=== PATIENT | male | born 1935 | race Caucasian/White ===

== ENCOUNTER 2016-11-22 12:50 | Inpatient (IN) | payer MEDICARE, OTHER ==
[2016-11-15 16:23] LABS: HEMATOCRIT 45.4 % (40.0-51.0); HEMOGLOBIN 14.3 g/dL (13.6-17.8)
[2016-11-15 16:38] LABS: BUN (BLOOD UREA NITROGEN) 23 MG/DL (6-23); CALCIUM, SERUM 8.3 MG/DL (8.5-10.4); CHLORIDE, SERUM 109 MMOL/L (96-112); CO2 (CARBON DIOXIDE) 31 MMOL/L (24-34); CREATININE 0.94 MG/DL (0.70-1.30); GFR AFRICAN AMERICAN 88 ML/MIN (>=60); GFR NON AFRICAN AMERICAN 76 ML/MIN (>=60); GLUCOSE, SERUM 91 MG/DL (60-99); POTASSIUM, SERUM 4.2 MMOL/L (3.5-5.3); SODIUM, SERUM 145 MMOL/L (135-148)
[2016-11-15 18:25] LABS: BASOPHILS 0.7 %; BASOPHILS ABSOLUTE 0.04 10/3/uL (0.0-0.16); EOSINOPHILS 1.3 %; EOSINOPHILS ABSOLUTE 0.07 10/3/uL (0.0-0.53); IMMATURE GRANULOCYTES 0.2 %; IMMATURE GRANULOCYTES ABSOLUTE 0.01 10/3/uL (0.0-0.11); LYMPHOCYTES 24.2 %; LYMPHOCYTES ABSOLUTE 1.32 10/3/uL (0.67-4.30); MEAN CORPUS HGB CONC 31.7 g/dL (32.0-36.0); MEAN CORPUSCULAR HEMOGLOB 29.1 pg (26.0-34.0); MEAN PLATELET VOLUME 11.1 fL (9.2-13.0); MONOCYTES 9.7 %; MONOCYTES ABSOLUTE 0.53 10/3/uL (0.21-1.20); NEUTROPHILS 63.9 %; NEUTROPHILS ABSOLUTE 3.48 10/3/uL (2.02-8.40); PLATELET COUNT 163 10/3/uL (150-400); RBC DISTRIBUTION WIDTH 14.3 % (12.0-16.0); WHITE BLOOD CELLS 5.5 10/3/uL (4.5-10.5)
[2016-11-15 18:30] LABS: MANUAL DIFF NO %; MEAN CORPUSCULAR VOLUME 91.9 fL (80-100); RED CELL COUNT 4.84 10/6/uL (4.7-6.1)
--- NOTE | ~2016-11-22 | DS ---
Discharge Summary [facility] [address] [place]. [address] NAME: ANALI ADORNO : 35 STATUS : DIS IN PAT#: [id number] AGE: 81 ADM/REG DATE : 11/22/16 MR#: [id number] REPORT SERV DATE: 11/26/16 DICTATED BY: CANELO HARVEY III DATE: 11/25/16 REPORT STATUS : Draft TRANSCRIBED BY: MODTheo DATE: 11/25/16 ADMISSION DATE: 11/22/2016 DISCHARGE DATE: 11/25/2016 DATE OF ANTICIPATED DISCHARGE: 11/25/2016. DISCHARGE DIAGNOSIS: Bladder cancer. PROCEDURE: Cystoscopy, TURBT. HISTORY OF PRESENT ILLNESS: The patient is 81-year-old, white male, presented with gross hematuria. CT showed thickening of the right lateral wall, also a very large prostate. He was cystoscoped in the office and had a sizable prostate as well as significant involvement of the right lateral wall of the bladder with what appeared to be a sessile tumor with flexible scope. He was admitted for a cysto TURBT. PAST MEDICAL HISTORY: Includes COPD, hypertension. He has also had a mitral valve repair. He has a long history of smoking with COPD. HOSPITAL COURSE: The patient was taken to the operating room. The prostate did make it somewhat difficult to resect, however, the majority of the right lateral wall was involved with tumor extending medially toward the posterior base of the bladder. It was more papillary than solid. Shavings were done down deeply in the muscle and several areas. All visible tumors were resected and were fulgurated. Path report was high-grade T1 with muscle present but not involved. He had significant hematuria that I felt was mostly from the prostate. At the end of the procedure, there was no bleeding from the bladder, however, the prostate was bleeding from the manipulation and traction was required to clear the urine. His urine had gotten to light pink on a slow drip and when seen on 11/25/2016, he was urinating pink urine but urinating urgently with some minor urge incontinence. We will observe him today. If his urine remains clear to light pink and he is voiding satisfactorily, we will discharge him home. I explained to him he does have superficial invasive disease and will need a second look in approximately 4-5 weeks to rule out muscle disease. If this is truly a T1 lesion, he will need BCG immunotherapy. OB/MODL Canelo Harvey III, M.D. / [id number] CC: Cali Donahue III
--- NOTE | ~2016-11-22 | OP ---
Record Of Operation [facility] [address] [place]. [address] NAME: ANALI ADORNO : 35 STATUS : ADM Nishi PAT#: [id number] AGE: 81 ADM/REG DATE : 11/22/16 MR#: [id number] REPORT SERV DATE: 11/23/16 DICTATED BY: CANELO HARVEY III DATE: 11/22/16 REPORT STATUS : Draft TRANSCRIBED BY: MODL DATE: 11/22/16 DATE OF PROCEDURE: 11/22/2016 PROCEDURE: Cystoscopy, TURBT of 3 cm bladder tumor. PREOPERATIVE DIAGNOSIS: Bladder mass. POSTOPERATIVE DIAGNOSIS: Bladder mass. ANESTHESIA: General. SURGEON: Canelo Harvey M.D. PROCEDURE IN DETAIL: Following induction of adequate general anesthesia, patient was placed in dorsal lithotomy position, prepped in sterile fashion. The flexible scope was placed initially. The urethra was normal. The prostate was very large. The tumor was examined and was exclusively on the right lateral wall extending to part of the dome and into the posterior base. Also extended to the bladder neck on the right side. The remainder of the bladder was clean. The orifices were identified. They had clear efflux. The prostate bled a small amount with the scope and I felt that trying to do retrograde would induce unnecessary bleeding from the prostate. I attempted to place a sheath, this was difficult and I then passed sounds up to 30-Qatari. I was finally able pass the sheath and the sheath actually was at the bladder neck. With a little more manipulation, I was able to get the sheath into the bladder. Initially the bladder filled somewhat slowly and the anatomy was somewhat distorted. I was somewhat concerned about the possibility of a sound or attempted the sheath causing a problem, so a cystogram was planned, however, the machine was nonfunctional. I finally got the bladder distended, got a good look with the resectoscope sheath. There were no perforation. There was no bleeding. It did appear that the tumor flattened out a good bit with full filling. Resection was begun at the most anterior portion of the tumor at the dome. This tumor appeared to be papillary and very superficial. When we got down to the lateral wall, there appear to possibly be some solid tissue and majority of it was papillary and a good bit of the lateral muscle wall was uncovered. Due to the angle and size of the prostate, it was hard to get a large shavings. The several of the shavings did get fairly deep in the muscle. The x-ray machine was then adjusted and we did a cystogram showing a very elevated bladder neck with the base of the bladder almost was in the mid pelvis. No extravasation was noted on the filling or drainage fill. I completed the resection, some of the tumor particularly at the 10 and 11 o'clock position was hard to reach with the scope due to the size of the prostate and the amount of scope in the prostate. All of the papillary masses were eventually resected, there was some erythema in areas that would be difficult and I judged to be dangerous to try to use a loop so that these were fulgurated. Hemostasis was achieved. All clots chips were evacuated. There was no bleeding within the bladder. However, there was bleeding in the prostate. A catheter was placed without a guide, initially we got a fairly bloody efflux, however, it cleared with light traction. The catheter was attached to the patient's right thigh and the procedure terminated. The patient tolerated the procedure well. He has a 24-Qatari catheter with 30 mL in the balloon. Blood loss was not substantial and it never interfered Record Of Operation [address] [address] NAME: ANALI ADORNO : 35 STATUS : ADM Nishi PAT#: [id number] AGE: 81 ADM/REG DATE : 11/22/16 MR#: [id number] REPORT SERV DATE: 11/23/16 DICTATED BY: CANELO HARVEY III DATE: 11/22/16 REPORT STATUS : Draft TRANSCRIBED BY: MODL DATE: 11/22/16 with visualization in the bladder. He will be taken to recovery room. OB/MODL Canelo Harvey III, M.D. / [id number] CC: Canelo Harvey III, M.D.
--- NOTE | ~2016-11-22 | HP ---
History And Physical [facility] [id number] [place]. [address] NAME: ANALI ADORNO : 35 STATUS : ADM IN PAT#: [id number] AGE: 81 ADM/REG DATE : 11/22/16 MR#: [id number] REPORT SERV DATE: 11/25/16 DICTATED BY: CANELO HARVEY III DATE: 11/25/16 REPORT STATUS : Draft TRANSCRIBED BY: MODL DATE: 11/25/16 DATE OF ADMISSION: 11/22/2016 REASON FOR ADMISSION: Gross hematuria and bladder tumor. HISTORY OF PRESENT ILLNESS: The patient is an 81-year-old white male who has a gross hematuria. He had a CT showing thickening of the right lateral wall with a large prostate. Cystoscopy showed what appeared to be a sessile tumor encompassing the majority of the right lateral wall. He was brought in for a cysto, TURBT. PAST MEDICAL HISTORY: Includes mitral valve repair, COPD, sleep apnea, and BPH. His home medications include albuterol, Uroxatral, aspirin, atorvastatin, diltiazem for hypertension, and fluconazole. SOCIAL HISTORY: He is a former heavy smoker. Does not drink. He is . REVIEW OF SYSTEMS: Revealed no chest pain, shortness of breath, palpitations, headaches, or musculoskeletal issues. PHYSICAL EXAMINATION: VITAL SIGNS: In the office, his vital signs were stable. GENERAL: He is alert and oriented. Mood and affect are normal. HEENT: Unremarkable. NECK: Supple. LUNGS: Clear. ABDOMEN: Soft, nontender. Bowel sounds are present. : His bladder was not enlarged. External genitalia reveal descended testicles bilaterally. Phallus have normal meatus, glans, and shaft. Prostate was 3+ and smooth without nodularity. No masses were noted. EXTREMITIES: There is no pedal edema. IMPRESSION: Bladder tumor. I discussed risk of bleeding, perforation, need for additional procedures, and with his prostate, possibility of urinary retention. He understands the above and is agreeable to it. We will proceed with a cysto and TURBT. OB/MODL Canelo Harvey III, M.D. / [id number] CC: History And Physical [address] [place]. [address] NAME: ANALI ADORNO : 35 STATUS : ADM IN [facility]#: [id number] AGE: 81 ADM/REG DATE : 11/22/16 MR#: [id number] REPORT SERV DATE: 11/25/16 DICTATED BY: CANELO HARVEY III DATE: 11/25/16 REPORT STATUS : Draft TRANSCRIBED BY: MODL DATE: 11/25/16 Cali Donahue III, LISA M
[~2016-11-22 12:50] MED LIST: ADVAIR250 INH; ASAB PO; B121000P IM; DEMA10T PO; DILT-XR180 MG PO; HABIT14 TOP; KDUR20 PO; LIPITOR20 PO; LOP25 PO; OXYCOD PO; PROVHFA INH; SYMBICORT 160/41 INH INH; UROXATRAL PO; VITAMIN D1000 UNI1 PO; VITC500 PO; Vitamin B-12 IM
[2016-12-23] MEDS ORDERED: DITRO5 PO (14:27)
[2016-12-23] MEDS ORDERED: PROSCAR5 PO (14:27)
[2016-12-23] MEDS ORDERED: NORCO1 TA2 PO (14:27)
[2017-04-08] MEDS ORDERED: ZYVOXPO PO (10:05)
== END 2016-11-25 15:37 | disposition home or self-care (01) | DRG 670 ==
LOC: SDC 12:50 → 4SO 18:25
PROVIDERS: Urology
PROC: 0TBB8ZZ Excision of Bladder, Via Natural or Artificial Opening Endoscopic (ICD-10-PCS; principal; 2016-11-22 15:00)
DX: C67.2 Malignant neoplasm of lateral wall of bladder (principal); J44.9 Chronic obstructive pulmonary disease, unspecified; R31.0 Gross hematuria; I10 Essential (primary) hypertension; Z87.891 Personal history of nicotine dependence; G47.33 Obstructive sleep apnea (adult) (pediatric); N40.0 Benign prostatic hyperplasia without lower urinary tract symptoms; Z79.82 Long term (current) use of aspirin
CPT/HCPCS: 51600; 71010; 74430; 80048; 85025; 88305; 88307; 88342; 93005; A9270-GY; J0330; J2405; J3010; Q9967